=== PATIENT | female | born 1945 | race Caucasian/White ===

== ENCOUNTER 2016-04-21 07:11 | Outpatient (CLI) | payer MEDICARE, OTHER ==
[~2016-04-21] VITALS: Ht 162.6 cm; Wt 65.8 kg
[~2016-04-21 07:11] MED LIST: AMLO10TA82 PO; GBPN300C PO; HYDR1TAB66 PO; IBP800T PO; LISI40TA PO; SIMV40TA4 PO
[2016-04-21] MEDS ORDERED: TRIAMCINOLONE ACET (KENALOG-40) 40 MG/ML 1 ML VIAL ONE (07:30)
[2016-04-21] MEDS ORDERED: BUPIVACAINE 0.25% 30 ML (SENSORCAINE) VIAL ONE (07:30)
[2016-04-21 07:46] VITALS: BP 143/88
[2016-04-21 08:23] VITALS: BP 144/83
--- NOTE | 2016-04-21 09:17 | Pain Medicine-Procedure ---
Procedure Pre-Op/Post-Op Diagnosis Diagnosis: Disc disorder with radiculopathy, lumbar Indications for Operation Low back pain Attending Surgeon Marcos Procedure Date of Service: Apr 21, 2016 Procedure: Lumbar Epidural Steroid Injection at the L4-L5 level under Fluoroscopic Guidance Procedure: Patient was identified in the holding area. After risks, benefits, and alternatives were discussed with the patient, informed consent was obtained. Patient was brought to the fluoroscopy suite and placed prone on the procedure room table. A time out was performed. Vital signs were monitored throughout the procedure. The patients low back was prepped and draped in the usual sterile fashion. The patients skin was anesthetized using 2% Lidocaine. A Tuohy needle was inserted and advanced to the L4-L5 epidural space under fluoroscopic guidance using the loss of resistance technique and intermittent projection of fluoroscopy. There was no paresthesia with needle placement. The needle position was confirmed in both the AP and lateral view. After negative aspiration 2ml of contrast was injected under live fluoroscopy which showed good spread of the contrast in the epidural space at the appropriate level, there was no intravascular or subarachnoid spread. Again, after negative aspiration for heme or CSF, 2 ml of 0.25% Bupivicaine, 2ml of preservative free normal saline, and 80mg of Kenalog was injected. The needle was removed and a sterile bandage was placed and the patient was transferred to the recovery area in stable condition. After a brief period of observation, patient was discharged to home with no new neurological deficits and no apparent complications. Complications None HOLLAND NORMAN MD Apr 21, 2016 9:17 am
== END 2016-04-21 08:24 | disposition home or self-care (01) ==
LOC: CARD 07:11
PROVIDERS: ATTEND Pain Medicine Pain Medicine
DX: M51.16 Intervertebral disc disorders with radiculopathy, lumbar region (principal); Z79.899 Other long term (current) drug therapy
CPT/HCPCS: 62323; 82962

== ENCOUNTER → 2019-08-25 | Outpatient (CLI) | payer MEDICARE | LOC: CARD 10:48 | PROVIDERS: ATTEND Family Medicine | DX: R55 Syncope and collapse (principal) | CPT/HCPCS: 93306 ==

== ENCOUNTER 2021-07-24 15:32 | Emergency (ER) | payer MEDICARE ==
[~2021-07-24] VITALS: Ht 162 cm; Wt 67.0 kg
[2021-07-24 15:41] VITALS: BP 151/55
[2021-07-24] MEDS ORDERED: BSS 15 ML IR ONE (15:45)
[2021-07-24] MEDS ORDERED: TETRACAINE 0.5% OPHTH SOLN 4 ML BTL (SINGLE DOSE ONLY) OU ONE (15:45)
[2021-07-24] MEDS ORDERED: FLUORESCEIN (FLUOR-I-STRIPS) 1 MG STRP OU ONE (15:45)
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
[2021-07-24] MEDS ORDERED: ERYT1OIN6 OS (16:51)
== END 2021-07-24 17:03 | disposition home or self-care (01) ==
LOC: EDUNIT# 15:32 → ER FS 15:33
DX: S05.02XA Injury of conjunctiva and corneal abrasion without foreign body, left eye, initial encounter (principal); H10.211 Acute toxic conjunctivitis, right eye; W36.8XXA Explosion and rupture of other gas cylinder, initial encounter; Y92.009 Unspecified place in unspecified non-institutional (private) residence as the place of occurrence of the external cause
CPT/HCPCS: 99282